=== PATIENT | female | born 1940 | race Caucasian/White ===

== ENCOUNTER 2022-01-22 08:12 | Inpatient (IN) | payer MEDICARE, SELFPAY ==
--- NOTE | ~2022-01-22 | XR_ITS ---
EXAMINATION: XR CHEST CLINICAL INFORMATION: Cough COMPARISON: None TECHNIQUE: Frontal view of the chest was obtained. FINDINGS: Lungs are mildly hypoinflated and clear. No evidence of interstitial disease, consolidation or pleural effusion. Cardiac silhouette has normal size and contour. No pulmonary edema. Multilevel osteophyte formation of the partially visualized spine. No suspicious bone lesions. XR/XR chest 1V IMPRESSION: No evidence of pneumonia. No acute cardiopulmonary findings.
--- NOTE | ~2022-01-22 | MR_ITS ---
EXAMINATION: MR BRAIN WITHOUT AND WITH CONTRAST CLINICAL INFORMATION: Right-sided weakness. COMPARISON: Head CT 01/22/2022. TECHNIQUE: Multiplanar, multisequence imaging of the brain was performed before and after the intravenous administration of 10 mL of Gadavist. FINDINGS: There is a small focus of acute lacunar infarction within the left thalamus. No large territory infarction, hemorrhage, or mass is seen. There is no abnormal intracranial enhancement. 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 There is a chronic infarct within the left BALANCER vascular territory involving the occipital lobe. Chronic lacunar infarcts are also noted in the bilateral basal ganglia and bilateral thalami. The ventricles and sulci are commensurate with mild degree of brain parenchymal volume loss demonstrated. The major arterial flow voids are preserved at the skull base. There are bilateral lens replacements. The extracranial structures are within normal limits. MR/MR head/brain wo/w con IMPRESSION: Small acute lacunar infarction in the left thalamus. Background changes of advanced chronic microangiopathy and chronic left BALANCER infarct. No mass or enhancing lesion. No hemorrhage.
--- NOTE | ~2022-01-22 | CT_ITS ---
EXAMINATION: CT CERVICAL SPINE WITHOUT CONTRAST CLINICAL INFORMATION: Right-sided weakness, pain. COMPARISON: None TECHNIQUE: Axial imaging. Sagittal and coronal reconstructions. This CT examination was performed using dose optimization techniques as appropriate, variously including the following: *Automated exposure control *Adjustment of mA and/or kV according to patient size (this includes techniques or standardized protocols for targeted exams where dose is matched to indication/reason for exam; i.e. extremities or head) *Use of iterative reconstruction technique DLP: 578 mGy-cm FINDINGS: Craniocervical and atlantoaxial articulation is maintained. The posterior alignment is maintained without evidence of significant subluxation. Predens space is maintained. There is a chronic ossification anterior to the C2 vertebral body. There is a slight angulation/depression of the superior C7 vertebral body, which could represent physiological variation versus an age-indeterminate subtle fracture. The vertebral body heights otherwise maintained. Cervical spondylosis present. Disc degenerative changes present, more prominent at C4-C5, C5-C6. Facet degeneration present. No significant prevertebral soft tissue swelling. Mild biapical pleural parenchymal scarring. No suspicious thyroid findings. No adenopathy is identified. CT/CT cervical spine wo con IMPRESSION: 1. Slight undulation/depression of the superior aspect of C7 vertebral body. This could represent physiological variation versus an age-indeterminate subtle fracture. Clinically correlate for focal symptoms. Further evaluation with MRI as clinically warranted. 2. No other acute osseous abnormalities identified in the cervical spine. 3. Cervical spondylosis.
--- NOTE | ~2022-01-22 | CT_ITS ---
EXAMINATION: CT HEAD WITHOUT CONTRAST (STROKE PROTOCOL) CLINICAL INFORMATION: Stroke protocol. Right sided weakness. COMPARISON: None TECHNIQUE: Contiguous axial imaging was performed from the skull base to vertex without intravenous administration of contrast. This CT examination was performed using dose optimization techniques as appropriate, variously including the following: *Automated exposure control *Adjustment of mA and/or kV according to patient size (this includes techniques or standardized protocols for targeted exams where dose is matched to indication/reason for exam; i.e. extremities or head) *Use of iterative reconstruction technique DLP: 727 mGy-cm FINDINGS: There is no evidence of acute intracranial hemorrhage.. There is a hypodensity in the left occipital lobe, with loss of loo-white matter differentiation compatible with an infarction, of indeterminate age. There appears to be some degree of encephalomalacia in this region.Otherwise, the Loo to white matter differentiation is well preserved, without evidence of edematous territorial infarction. No extra-axial fluid collections are identified. No abnormal mass effect or midline shift is seen Commensurate prominence of the ventricles and sulci. There is mild periventricular and subcortical white matter hypoattenuation, most likely representing microangiopathic disease. Mild patchy periventricular and deep white matter hypodensities suggestive of chronic microangiopathic ischemic changes. No acute calvarial fracture. Partial opacification of the right ethmoid sinus. The mastoid air cells and remainder of the visualized portions of the paranasal sinuses are well aerated. CT/CT head for stroke IMPRESSION: Hypodensity in the left occipital lobe compatible with an infarction, of indeterminate age. Consider further evaluation with CTA head or MRI, as clinically warranted. No evidence of acute intracranial hemorrhage. This critical result was discussed with Dr. Andersen at 919 hours on 01/22/2022. It was ascertained that the content and urgency of the report was understood at the time of direct communication.
[2022-01-22 08:21] VITALS: BP 150/50; BP 179/83; PULSE 80; PULSE 81; RESP 16; TEMP 36.6; O2SAT 98; O2SAT 99; BMI 27.8
--- NOTE | 2022-01-22 08:43 | ECG_ITS ---
Test Reason : STROKE PRO Blood Pressure : / mmHG Vent. Rate : 075 BPM Atrial Rate : 075 BPM P-R Int : 196 ms QRS Dur : 080 ms QT Int : 396 ms P-R-T Axes : 046 032 055 degrees QTc Int : 442 ms Normal sinus rhythm Septal infarct , age undetermined Abnormal ECG No previous ECGs available Referred By: Maddie Andersen Electronically Signed By:Calixto Her
[2022-01-22 09:04] LABS: MANUAL DIFF FLAG NO
[2022-01-22 09:05] LABS: Glucose, Whole Blood 114 mg/dL (60-115); Prothrombin Time Whole Bld POC 34.9 sec (11.1-13.5); ~PT, ~INR - Anti Coag Clinic 2.9 (0.9-1.1)
[2022-01-22 09:25] LABS: Basophils Absolute Auto 0.1 X10*3/uL (0.0-0.2); Basophils Percent Auto 0.7 % (0-2); Eosinophils Absolute Auto 0.2 X10*3/uL (0.0-0.4); Eosinophils Percent Auto 3.1 % (0-4); Hematocrit 33.4 % (37.0-47.0); Hemoglobin 10.9 g/dl (12.0-16.0); Imm Gran Abs Auto 0.02 X10*3/uL (0.00-0.03); Imm Gran Pct Auto 0.3 % (0.0-0.4); Lymphocytes Absolute Auto 1.9 X10*3/uL (1.2-4.9); Lymphocytes Percent Auto 25.6 % (20-40); Mean Corpuscular HGB Conc 32.6 g/dl (31.0-35.0); Mean Corpuscular Hemoglobin 28.2 pg (27.0-33.0); Mean Corpuscular Volume 86.3 fL (80.0-98.0); Mean Platelet Volume 10.4 fL (9.4-12.3); Monocytes Absolute Auto 0.6 X10*3/uL (0.1-1.2); Monocytes Percent Auto 8.3 % (2-11); Neutrophils Absolute Auto 4.6 x10*3/uL (2.0-8.3); Platelet Count 257 X10*3/uL (160-400); Red Blood Count 3.87 X10*6/uL (4.20-5.50); Red Cell Distribution Width 12.5 % (11.0-16.0); White Blood Count 7.4 X10*3/uL (4.8-10.8)
[2022-01-22 09:28] LABS: INTERNATIONAL NORM RATIO 3.1 (0.9-1.1); Prothrombin Time 36.2 SEC (9.9-13.0)
[2022-01-22 09:30] LABS: Glucose Random 118 mg/dL (60-115)
[2022-01-22 09:31] LABS: Partial Thromboplastin Time 47.9 SEC (24.1-38.0)
[2022-01-22 09:32] LABS: Stroke Lab Use COMPLETE
[2022-01-22 09:36] LABS: Alanine Aminotransferase 12 U/L (0-31); Albumin Level 3.8 g/dL (3.5-5.0); Alkaline Phosphatase 58 U/L (39-117); Anion Gap 14 (12-20); Aspartate Amino Transferase 14 U/L (5-31); Bilirubin Direct 0.2 mg/dL (0.0-0.5); Bilirubin Total 0.5 mg/dL (0.0-1.0); Blood Urea Nitrogen 21 mg/dL (9-16); Carbon Dioxide 26 mmol/L (22-29); Chloride 102 mmol/L (96-108); Creatinine Clr Calc Pharmacy 46.4; Estimated Glomerular Filt Rate 45; Glucose Random 119 mg/dL (60-115); Magnesium 1.8 mg/dL (1.6-2.6); Phosphorus 3.4 mg/dL (2.7-4.5); Potassium 4.2 mmol/L (3.3-5.1); Sodium 138 mmol/L (135-145); Total Protein 6.7 g/dL (6.5-8.0)
[2022-01-22 09:38] LABS: Troponin-I High Sensitivity < 3.5 ng/L (<3.5-17.0)
--- NOTE | 2022-01-22 09:56 | ED.NEUROSD ---
HPI - Neuro Symptoms/Deficit General Chief Complaint: Neuro Symptoms/Deficit Stated Complaint: R ARM/LEG NUMBNESS S/P BOOSTER SHOT 3 DAYS AGO Time Seen by Provider: 01/22/22 08:33 History of Present Illness HPI Narrative: Patient is in 82-year-old female with a history of CVA in the past. History of diabetes, hypertension, high cholesterol. No history of smoking. Patient had her coronavirus booster Monday. Notice numbness to the hand on . Yesterday started developing weakness to the leg. Patient's claims she is unable to ambulate. No fever no chills no coughing or congestion or upper respiratory symptoms. No diaphoresis. No changes in medication. Related Data Allergies Allergy/AdvReac Type Severity Reaction Status Date / Time aspirin [ASA] Allergy Anaphylaxis Verified 01/22/22 08:27 Review of Systems Review of Systems: Positive weakness to the right hand positive weakness to the right leg. No changes in speech. No facial droop. Yes all other systems are reviewed and are negative [facility] Past Medical History Attestation statement: The following information was validated with the patient. Medical History Diabetes High cholesterol HTN (hypertension) Social History Social History Advance Directives: No Advance Directives Information Provided: No Physical Exam Vital Signs: Vital Signs: Last Vital Signs Temp 97.9 F 01/22/22 08:21 Pulse 85 01/22/22 10:18 Resp 18 01/22/22 10:18 BP 171/61 H 01/22/22 10:18 Pulse Ox 98 01/22/22 10:18 BMI result Body Mass Index 27.8 Appearance: Alert. Oriented X3. No acute distress. Eyes: Pupils equal, round and reactive to light. ENT: Pharynx normal. Neck: Normal inspection. Neck supple. No lymph nodes noted. No crepitus CVS: Normal heart rate and rhythm. Pulses normal. Normal S1 and S2 Respiratory: No respiratory distress. Breath sounds normal. No Wheezing. No rales Abdomen: Soft and nontender. No rigidity. No distention. good BS x4 Skin: Skin warm and dry. Normal skin color. Normal skin turgor. Extremities: Positive weakness to the right lower extremity. Unable lift up against gravity. Sensation bilateral lower extremity intact. Hand grasps equal bilaterally. Sensation hands intact. Minimal drift noted on the right hand. Neuro: Oriented X 3. Positive weakness in the right lower extremity. Unable lift up against gravity. Sensation in lower extremity intact. Pulse intact. No slurred speech no facial droop. Please also see NIH stroke scale. MDM - Neuro Symptoms/Deficit MDM Narrative Medical decision making narrative: Positive weakness to the hand followed by day later weakness in the leg. Symptoms greater than 24 hours at this point. Patient CT scan of the head was grossly negative. Patient is on warfarin not a candidate for tPA. Patient not a candidate for interventional clot retrieval due to the chronicity of the illness. Question complicated migraine. Patient's case discussed with neurology. Patient's neurological symptoms unchanged. Agree with plan of giving some Reglan. [place] it is not a stroke given the CT scan of the head showed an occipital lesion likely not the cause of patient's leg weakness. Will admit patient to the hospitalist service for further evaluation as patient is unable to ambulate. She is in stable condition her electrolytes are normal her sugar did not show any evidence Medical Records Attestation: I reviewed the patient's medical records. Lab Data Result diagrams: 01/22/22 09:00 01/22/22 09:00 Labs: Lab Results 01/22/22 01/22/22 01/22/22 Range/Units 09:00 09:00 09:00 WBC 7.4 (4.8-10.8) X10*3/uL RBC 3.87 L (4.20-5.50) X10*6/uL Hgb 10.9 L (12.0-16.0) g/dl Hct 33.4 L (37.0-47.0) % MCV 86.3 (80.0-98.0) fL MCH 28.2 (27.0-33.0) pg MCHC 32.6 (31.0-35.0) g/dl RDW 12.5 (11.0-16.0) % Plt Count 257 (160-400) X10*3/uL MPV 10.4 (9.4-12.3) fL Immature Gran % (Auto) 0.3 (0.0-0.4) % Neut % (Auto) 62.0 (45-73) % Lymph % (Auto) 25.6 (20-40) % Gregory % (Auto) 8.3 (2-11) % Eos % (Auto) 3.1 (0-4) % Baso % (Auto) 0.7 (0-2) % Lymph # (Auto) 1.9 (1.2-4.9) X10*3/uL Gregory # (Auto) 0.6 (0.1-1.2) X10*3/uL Eos # (Auto) 0.2 (0.0-0.4) X10*3/uL Baso # (Auto) 0.1 (0.0-0.2) X10*3/uL Abs Immat Gran (auto) 0.02 (0.00-0.03) X10*3/uL Absolute Neuts (auto) 4.6 (2.0-8.3) x10*3/uL Absolute Nucleated RBC 0.000 (0.0-0.012) X10*3/uL Nucleated RBC % (auto) 0.0 (0.0-0.2) /100WBC PT 36.2 H (9.9-13.0) SEC Whole Blood PT (11.1-13.5) sec INR 3.1 H (0.9-1.1) Whole Blood INR (0.9-1.1) APTT 47.9 H (24.1-38.0) SEC Sodium 138 (135-145) mmol/L Potassium 4.2 (3.3-5.1) mmol/L Chloride 102 (96-108) mmol/L Carbon Dioxide 26 (22-29) mmol/L Anion Gap 14 (12-20) BUN 21 H (9-16) mg/dL Creatinine 1.16 (0.5-1.4) mg/dL Estim Creat Clear Calc 46.4 Estimated GFR 45 POC Glucose (60-115) mg/dL Random Glucose 119 H (60-115) mg/dL Calcium 9.0 (8.4-10.2) mg/dL Phosphorus 3.4 (2.7-4.5) mg/dL Magnesium 1.8 (1.6-2.6) mg/dL Total Bilirubin 0.5 (0.0-1.0) mg/dL Direct Bilirubin 0.2 (0.0-0.5) mg/dL AST 14 (5-31) U/L ALT 12 (0-31) U/L Alkaline Phosphatase 58 (39-117) U/L Total Creatine Kinase 56 (26-140) U/L Troponin I High Sens (<3.5-17.0) ng/L Total Protein 6.7 (6.5-8.0) g/dL Albumin 3.8 (3.5-5.0) g/dL 01/22/22 01/22/22 01/22/22 Range/Units 09:00 09:00 09:00 WBC (4.8-10.8) X10*3/uL RBC (4.20-5.50) X10*6/uL Hgb (12.0-16.0) g/dl Hct (37.0-47.0) % MCV (80.0-98.0) fL MCH (27.0-33.0) pg MCHC (31.0-35.0) g/dl RDW (11.0-16.0) % Plt Count (160-400) X10*3/uL MPV (9.4-12.3) fL Immature Gran % (Auto) (0.0-0.4) % Neut % (Auto) (45-73) % Lymph % (Auto) (20-40) % Gregory % (Auto) (2-11) % Eos % (Auto) (0-4) % Baso % (Auto) (0-2) % Lymph # (Auto) (1.2-4.9) X10*3/uL Gregory # (Auto) (0.1-1.2) X10*3/uL Eos # (Auto) (0.0-0.4) X10*3/uL Baso # (Auto) (0.0-0.2) X10*3/uL Abs Immat Gran (auto) (0.00-0.03) X10*3/uL Absolute Neuts (auto) (2.0-8.3) x10*3/uL Absolute Nucleated RBC (0.0-0.012) X10*3/uL Nucleated RBC % (auto) (0.0-0.2) /100WBC PT (9.9-13.0) SEC Whole Blood PT (11.1-13.5) sec INR (0.9-1.1) Whole Blood INR (0.9-1.1) APTT (24.1-38.0) SEC Sodium (135-145) mmol/L Potassium (3.3-5.1) mmol/L Chloride (96-108) mmol/L Carbon Dioxide (22-29) mmol/L Anion Gap (12-20) BUN (9-16) mg/dL Creatinine (0.5-1.4) mg/dL Estim Creat Clear Calc Estimated GFR POC Glucose 114 (60-115) mg/dL Random Glucose 118 H (60-115) mg/dL Calcium (8.4-10.2) mg/dL Phosphorus (2.7-4.5) mg/dL Magnesium (1.6-2.6) mg/dL Total Bilirubin (0.0-1.0) mg/dL Direct Bilirubin (0.0-0.5) mg/dL AST (5-31) U/L ALT (0-31) U/L Alkaline Phosphatase (39-117) U/L Total Creatine Kinase (26-140) U/L Troponin I High Sens < 3.5 (<3.5-17.0) ng/L Total Protein (6.5-8.0) g/dL Albumin (3.5-5.0) g/dL 01/22/22 Range/Units 09:00 WBC (4.8-10.8) X10*3/uL RBC (4.20-5.50) X10*6/uL Hgb (12.0-16.0) g/dl Hct (37.0-47.0) % MCV (80.0-98.0) fL MCH (27.0-33.0) pg MCHC (31.0-35.0) g/dl RDW (11.0-16.0) % Plt Count (160-400) X10*3/uL MPV (9.4-12.3) fL Immature Gran % (Auto) (0.0-0.4) % Neut % (Auto) (45-73) % Lymph % (Auto) (20-40) % Gregory % (Auto) (2-11) % Eos % (Auto) (0-4) % Baso % (Auto) (0-2) % Lymph # (Auto) (1.2-4.9) X10*3/uL Gregory # (Auto) (0.1-1.2) X10*3/uL Eos # (Auto) (0.0-0.4) X10*3/uL Baso # (Auto) (0.0-0.2) X10*3/uL Abs Immat Gran (auto) (0.00-0.03) X10*3/uL Absolute Neuts (auto) (2.0-8.3) x10*3/uL Absolute Nucleated RBC (0.0-0.012) X10*3/uL Nucleated RBC % (auto) (0.0-0.2) /100WBC PT (9.9-13.0) SEC Whole Blood PT 34.9 H (11.1-13.5) sec INR (0.9-1.1) Whole Blood INR 2.9 H (0.9-1.1) APTT (24.1-38.0) SEC Sodium (135-145) mmol/L Potassium (3.3-5.1) mmol/L Chloride (96-108) mmol/L Carbon Dioxide (22-29) mmol/L Anion Gap (12-20) BUN (9-16) mg/dL Creatinine (0.5-1.4) mg/dL Estim Creat Clear Calc Estimated GFR POC Glucose (60-115) mg/dL Random Glucose (60-115) mg/dL Calcium (8.4-10.2) mg/dL Phosphorus (2.7-4.5) mg/dL Magnesium (1.6-2.6) mg/dL Total Bilirubin (0.0-1.0) mg/dL Direct Bilirubin (0.0-0.5) mg/dL AST (5-31) U/L ALT (0-31) U/L Alkaline Phosphatase (39-117) U/L Total Creatine Kinase (26-140) U/L Troponin I High Sens (<3.5-17.0) ng/L Total Protein (6.5-8.0) g/dL Albumin (3.5-5.0) g/dL NIH Stroke Scale Internal: Initial- Upon Arrival Level of Consciousness: Alert Level of Consciousness Questions: Answers both questions correctly Level of Consciousness Commands: Performs both tasks correctly Best Gaze: Normal Visual: No visual loss Facial Palsy: Normal Motor Arm (Right): No drift Motor Arm (Left): No drift Motor Leg (Right): Some effort against gravity Motor Leg (Left): No drift Limb Ataxia: Present in one limb Sensory: Normal Best Language: No aphasia Dysarthia: Normal Extinction and Inattention: No abnormality Score: 3 Discharge Plan Discharge Clinical Impression: Cerebrovascular accident Patient Disposition: Admitted As Inpatient
[2022-01-22 10:18] VITALS: BP 171/61; PULSE 85; RESP 18; O2SAT 98
--- NOTE | 2022-01-22 10:27 | PC.NURSE ---
spoke with daughter who reports hx December 2020 stroke following 2nd vaccine home [phone] cell [phone]
--- NOTE | 2022-01-22 11:03 | PC.NURSE ---
plan for pt to be admit to the hospital. pt and daughter aware of plan
[2022-01-22] MEDS: diphenhydrAMINE HCL 50 MG/ML VIAL 25 MG IVPUSH (11:58)
[2022-01-22] MEDS: Metoclopramide HCl 10 MG/2 ML VIAL IVPUSH (11:58)
--- NOTE | 2022-01-22 12:18 | PHA.MEDREC ---
Pharmacy Consult ? Medication Reconciliation Pharmacy has completed the medication reconciliation. Patient's warfarin changes weekly pending INR. Current regimen entered. Thanks Julius
[2022-01-22 12:21] LABS: COVID-19 Test Negative (Negative); IDNOW Serial# 55D5AD1C
[2022-01-22 12:31] VITALS: BP 153/87; PULSE 77; RESP 16; TEMP 36.7; O2SAT 98
--- NOTE | 2022-01-22 12:57 | P.HPHOSP_ITS ---
History of Present Illness Date of Service: 01/22/22 Chief Complaint: Right-sided weakness 82-year-old female with history of diabetes hypertension high cholesterol and old CVA presents today with weakness to her right leg. She states she received veloz booster approximately 3 days ago and developed numbness and tingling in her right arm the next day. She states no initial leg symptoms. States when she woke up this morning she was unable to keep her knee straight and felt getting out of bed. Presented to the emergency room where CT revealed an old occipital infarct but nothing acute. She will be admitted to complete workup Review of Systems Review of Systems: Denies chest pain Denies shortness of breath Denies nausea vomiting diarrhea Denies fever chills [facility] Medical History (Updated 01/22/22 @ 13:09 by Roderick Mayfield DO) Diabetes High cholesterol HTN (hypertension) Social History Advance Directives: No Advance Directives Information Provided: No Meds Allergies Allergy/AdvReac Type Severity Reaction Status Date / Time aspirin [ASA] Allergy Anaphylaxis Verified 01/22/22 08:27 Active Medications: Current Medications Insulin Human Lispro (Insulin Lispro 100 Unit/Ml 3 Ml Vial) 0 unit SUBCUT QIDACHS [facility]; Protocol Levothyroxine Sodium (Levothyroxine Sodium 50 Mcg Tablet) 50 mcg PO DAILY@0600 [facility] Losartan Potassium (Losartan Potassium 25 Mg Tablet) 25 mg PO DAILY [facility]; Protocol Metformin HCl (Metformin Hcl 500 Mg Tablet) 500 mg PO BID [facility] Multivitamins/Vitamin C (Multivitamin Tablet) 1 tab PO DAILY [facility] Sodium Chloride (0.9 % Sodium Chloride Flush 3 Ml Syringe) 3 ml IVFLUSH QSHIFT [facility] Vitamin D (Cholecalciferol (Vitamin D3) 25 Mcg Tablet) 50 mcg PO DAILY [facility] Warfarin Sodium (Warfarin Sodium 2.5 Mg Tablet) 2.5 mg PO SUWE [facility] Warfarin Sodium (Warfarin Sodium 5 Mg Tablet) 5 mg PO MOTUTHFRSA [facility] Home Medications Medication Instructions Recorded Confirmed Last Taken Type cholecalciferol (vitamin D3) 50 50 mcg PO DAILY 01/22/22 01/22/22 01/22/22 History mcg (2,000 unit) tablet hydroxyzine HCl 10 mg tablet 1 - 2 tab PO DAILY PRN 01/22/22 01/22/22 01/21/22 History levothyroxine 50 mcg tablet 1 tab PO DAILY 01/22/22 01/22/22 01/22/22 History losartan 25 mg tablet 1 tab PO DAILY 01/22/22 01/22/22 01/22/22 History metformin 500 mg tablet 1 tab PO BID 01/22/22 01/22/22 01/22/22 History multivitamin 1 tab PO DAILY 01/22/22 01/22/22 01/22/22 History warfarin 2.5 mg tablet 2.5 mg PO SUWE 01/22/22 01/22/22 01/19/22 History warfarin 5 mg tablet 5 mg PO MOTUTHFRSA 01/22/22 01/22/22 01/21/22 History Physical Exam Vital Signs and Narrative: Vital Signs: Last Vital Signs Temp 98.0 F 01/22/22 12:31 Pulse 77 01/22/22 12:31 Resp 16 01/22/22 12:31 BP 153/87 H 01/22/22 12:31 Pulse Ox 98 01/22/22 12:31 BMI result Body Mass Index 27.8 Const: Other: Awake alert oriented x3 no acute distress Neck: Other: No JVD Resp: Other: Clear to auscultation bilaterally. No rales rhonchi or wheezes Cardio: Other: No S4; positive S1-S2; no S3 murmurs rubs or gallops GI: Other: Soft nontender nondistended with normoactive bowel sounds Neuro: Other: Cranial nerves 2-12 grossly intact as tested. Motor is 5/5 left lower extremity 3/5 right lower extremity. Motor is 4/5 right upper extremity 5/5 left upper extremity. Right pronator drift. Toes downgoing. Cognition appropriate Extrem: Other: No edema bilaterally Results Labs CBC and Chem 7: 01/22/22 09:00 01/22/22 09:00 Labs: Laboratory Results - last 24 hr 01/22/22 01/22/22 01/22/22 09:00 09:00 09:00 MCV 86.3 MCH 28.2 MCHC 32.6 RDW 12.5 Plt Count 257 MPV 10.4 Immature Gran % (Auto) 0.3 Neut % (Auto) 62.0 Lymph % (Auto) 25.6 [place] % (Auto) 8.3 Eos % (Auto) 3.1 Baso % (Auto) 0.7 Lymph # (Auto) 1.9 [place] # (Auto) 0.6 Eos # (Auto) 0.2 Baso # (Auto) 0.1 Abs Immat Gran (auto) 0.02 Absolute Neuts (auto) 4.6 Absolute Nucleated RBC 0.000 Nucleated RBC % (auto) 0.0 PT 36.2 H Whole Blood PT INR 3.1 H Whole Blood INR APTT 47.9 H Anion Gap 14 Estim Creat Clear Calc 46.4 Estimated GFR 45 POC Glucose Random Glucose 119 H Calcium 9.0 Phosphorus 3.4 Magnesium 1.8 Total Bilirubin 0.5 Direct Bilirubin 0.2 AST 14 ALT 12 Alkaline Phosphatase 58 Total Creatine Kinase 56 Troponin I High Sens Total Protein 6.7 Albumin 3.8 COVID-19 (EDYTA) COVID-19 Venuemob 01/22/22 01/22/22 01/22/22 09:00 09:00 09:00 MCV MCH MCHC RDW Plt Count MPV Immature Gran % (Auto) Neut % (Auto) Lymph % (Auto) [place] % (Auto) Eos % (Auto) Baso % (Auto) Lymph # (Auto) [place] # (Auto) Eos # (Auto) Baso # (Auto) Abs Immat Gran (auto) Absolute Neuts (auto) Absolute Nucleated RBC Nucleated RBC % (auto) PT Whole Blood PT INR Whole Blood INR APTT Anion Gap Estim Creat Clear Calc Estimated GFR POC Glucose 114 Random Glucose 118 H Calcium Phosphorus Magnesium Total Bilirubin Direct Bilirubin AST ALT Alkaline Phosphatase Total Creatine Kinase Troponin I High Sens < 3.5 Total Protein Albumin COVID-19 (EDYTA) COVID-19 Venuemob 01/22/22 01/22/22 09:00 11:20 MCV MCH MCHC RDW Plt Count MPV Immature Gran % (Auto) Neut % (Auto) Lymph % (Auto) [place] % (Auto) Eos % (Auto) Baso % (Auto) Lymph # (Auto) [place] # (Auto) Eos # (Auto) Baso # (Auto) Abs Immat Gran (auto) Absolute Neuts (auto) Absolute Nucleated RBC Nucleated RBC % (auto) PT Whole Blood PT 34.9 H INR Whole Blood INR 2.9 H APTT Anion Gap Estim Creat Clear Calc Estimated GFR POC Glucose Random Glucose Calcium Phosphorus Magnesium Total Bilirubin Direct Bilirubin AST ALT Alkaline Phosphatase Total Creatine Kinase Troponin I High Sens Total Protein Albumin COVID-19 (EDYTA) Negative COVID-19 Clin Com See Note Imaging Radiologist's Impressions: Impressions Chest X-Ray 01/22/22 09:02 IMPRESSION: No evidence of pneumonia. No acute cardiopulmonary findings. Head CT 01/22/22 09:12 IMPRESSION: Hypodensity in the left occipital lobe compatible with an infarction, of indeterminate age. Consider further evaluation with CTA head or MRI, as clinically warranted. No evidence of acute intracranial hemorrhage. This critical result was discussed with Dr. Andersen at 919 hours on 01/22/2022. It was ascertained that the content and urgency of the report was understood at the time of direct communication. Cervical Spine CT 01/22/22 09:23 IMPRESSION: 1. Slight undulation/depression of the superior aspect of C7 vertebral body. This could represent physiological variation versus an age-indeterminate subtle fracture. Clinically correlate for focal symptoms. Further evaluation with MRI as clinically warranted. 2. No other acute osseous abnormalities identified in the cervical spine. 3. Cervical spondylosis. Assessment and Plan (1) Right sided weakness: Status: Acute (2) Diabetes: Status: Acute (3) HTN (hypertension): Status: Acute (4) High cholesterol: Status: Acute Plan 82-year-old female with a history of CVA in the past in the backdrop of diabetes hypertension hyperlipidemia presents with right-sided weakness that she awoke with. States that she got a COVID booster approximately 72 hours ago and developed some paresthesias in her upper arm. She stated no leg pain or p aresthesia at that time. In the emergency room CT scan was positive for an old infarct nothing acute. 1. Right-sided paresthesias -admit to telemetry to rule out arrhythmia -2D echo/MRI brain/carotids -continue Coumadin -Neuro consult; advise on timing of 2D echo/MRI/carotids 2. Diabetes type 2 -continue metformin at outpatient dosing... Adjust as clinically indicated -lispro correctional scale -ADA diet 3. Hypertension -acceptable control on current therapies -adjust as clinically indicated 4. Hyperlipidemia -check lipid panel in a.m.. .. Currently not on statin Full code Coumadin Will require 2 midnights going forward to rule out arrhythmia incomplete workup. This cannot be done and a less acute setting Quality Stroke Does the patient have a stroke diagnosis?: No VTE Prior VTE?: No VTE Risk Level:: Medical - moderate - high VTE Device Contraindication: Treatment Not Indicated VTE Drug Contraindication: N/A - Med Ordered
--- NOTE | 2022-01-22 14:15 | P.CNNE_ITS ---
History of Present Illness Data of Consult Service Date: 01/22/22 Primary Care Provider: Eli Morrison MD [facility] Reason for consult: Right-sided numbness and weakness 82 years old woman with hypertension and previous stroke taking Coumadin came to hospital with new onset of right-sided numbness and weakness. He said that day or 2 before that he had COVID booster in right shoulder. Her arm was aching and then next day she woke up and noted numbness in her hand and arm. Numbness was more loss of dexterity and difficult to explain feeling. Next a she tried to get and her right knee and leg gave away. She decided to come to hospital. There was no complaint of headache or neck pain. Review of Systems Review of Systems: No recent cold or flu-like illness PMFSH Past Medical History Medical History (Updated 01/22/22 @ 13:09 by Roderick Mayfield DO) Diabetes High cholesterol HTN (hypertension) Social History Social History Advance Directives: No Advance Directives Information Provided: No Meds Allergies Allergy/AdvReac Type Severity Reaction Status Date / Time aspirin [ASA] Allergy Anaphylaxis Verified 01/22/22 08:27 Active Medications: Current Medications Insulin Human Lispro (Insulin Lispro 100 Unit/Ml 3 Ml Vial) 0 unit SUBCUT QIDACHS [facility]; Protocol Levothyroxine Sodium (Levothyroxine Sodium 50 Mcg Tablet) 50 mcg PO DAILY@0600 [facility] Losartan Potassium (Losartan Potassium 25 Mg Tablet) 25 mg PO DAILY [facility]; Protocol Metformin HCl (Metformin Hcl 500 Mg Tablet) 500 mg PO BIDWM [facility] Multivitamins/Vitamin C (Multivitamin Tablet) 1 tab PO DAILY [facility] Sodium Chloride (0.9 % Sodium Chloride Flush 3 Ml Syringe) 3 ml IVFLUSH QSHIFT [facility] Vitamin D (Cholecalciferol (Vitamin D3) 25 Mcg Tablet) 50 mcg PO DAILY [facility] Warfarin Sodium (Warfarin Sodium 2.5 Mg Tablet) 2.5 mg PO [id number] [facility] Warfarin Sodium (Warfarin Sodium 5 Mg Tablet) 5 mg PO [id number]@[email or web address] [facility] Home Medications Medication Instructions Recorded Confirmed Last Taken Type cholecalciferol (vitamin D3) 50 50 mcg PO DAILY 01/22/22 01/22/22 01/22/22 History mcg (2,000 unit) tablet hydroxyzine HCl 10 mg tablet 1 - 2 tab PO DAILY PRN 01/22/22 01/22/22 01/21/22 History levothyroxine 50 mcg tablet 1 tab PO DAILY 01/22/22 01/22/22 01/22/22 History losartan 25 mg tablet 1 tab PO DAILY 01/22/22 01/22/22 01/22/22 History metformin 500 mg tablet 1 tab PO BID 01/22/22 01/22/22 01/22/22 History multivitamin 1 tab PO DAILY 01/22/22 01/22/22 01/22/22 History warfarin 2.5 mg tablet 2.5 mg PO SUWE 01/22/22 01/22/22 01/19/22 History warfarin 5 mg tablet 5 mg PO MOTUTHFRSA 01/22/22 01/22/22 01/21/22 History Physical Exam Vital Signs: Vital Signs: Last Vital Signs Temp 98.0 F 01/22/22 12:31 Pulse 77 01/22/22 12:31 Resp 16 01/22/22 12:31 BP 153/87 H 01/22/22 12:31 Pulse Ox 98 01/22/22 12:31 BMI result Body Mass Index 27.8 Neuro: Other: She was alert and awake with normal spontaneity of speech fluency comprehension and affect. Pupils were 3 mm round reactive to light. Extraocular muscles were intact. Visual vazquez are full to threat. Face was symmetrical. There was mild right pronator drift. Fine finger movements were slow in right hand. Right plantar was probably extensor left flexor. Deep tendon reflexes were trace. There was no sensory or visual extinction. Results Labs CBC & Chem 7: 01/22/22 09:00 01/22/22 09:00 Labs: Short CBC 01/22/22 Range/Units 09:00 WBC 7.4 (4.8-10.8) X10*3/uL Hgb 10.9 L (12.0-16.0) g/dl Hct 33.4 L (37.0-47.0) % Plt Count 257 (160-400) X10*3/uL BMP 01/22/22 09:00 Sodium 138 Potassium 4.2 Chloride 102 Carbon Dioxide 26 BUN 21 H Creatinine 1.16 Calcium 9.0 Cardiac Enzymes 01/22/22 Range/Units 09:00 Total Creatine Kinase 56 (26-140) U/L Liver Function 01/22/22 Range/Units 09:00 Total Bilirubin 0.5 (0.0-1.0) mg/dL Direct Bilirubin 0.2 (0.0-0.5) mg/dL AST 14 (5-31) U/L ALT 12 (0-31) U/L Alkaline Phosphatase 58 (39-117) U/L Albumin 3.8 (3.5-5.0) g/dL Noncontrast head CT revealed multiple bilateral hypodense signal abnormalities especially in left occipital area. These abnormalities could be chronic ischemic infarction or could be demyelinating disease. Assessment and Plan (1) Right sided weakness: Status: Acute 82 years old woman with right sided numbness and weakness suggestive of a central lesion. Stroke or an inflammatory or demyelinating etiology are consideration. For now I recommend blood pressure control, continuing her baseline medicines and obtaining an MRI of brain with and without contrast to evaluate pathology. Procedures Date of Service Date of Service: 01/22/22
[2022-01-22 16:00] VITALS: BP 164/75; PULSE 76; RESP 17; TEMP 36.4; O2SAT 95
[2022-01-22 16:31] LABS: Glucose, Whole Blood 150 mg/dL (60-115)
[2022-01-22] MEDS: metFORMIN HCl 500 MG TABLET PO (17:33)
[2022-01-22] MEDS: 0.9 % Sodium Chloride Flush 3 ML SYRINGE IVFLUSH ×2 (17:34→23:37)
[2022-01-22 20:00] VITALS: BP 186/81; PULSE 74; RESP 16; TEMP 37.1; O2SAT 97
[2022-01-22 21:01] LABS: Glucose, Whole Blood 101 mg/dL (60-115)
[2022-01-22] MEDS: hydrALAZINE HCl 20 MG/ML VIAL 5 MG IVPUSH (22:11)
[2022-01-23] VITALS (7 sets, daily range): BP systolic 146–173; BP diastolic 64–92; PULSE 66–82; RESP 16–20; TEMP 36.1–36.8; O2SAT 95–98
[2022-01-23] MEDS: Levothyroxine Sodium 50 MCG TABLET PO (05:34)
[2022-01-23 06:51] LABS: INTERNATIONAL NORM RATIO 4.2 (0.9-1.1); Prothrombin Time 49.3 SEC (9.9-13.0)
[2022-01-23 07:03] LABS: Hematocrit 33.8 % (37.0-47.0); Hemoglobin 11.3 g/dl (12.0-16.0); Mean Corpuscular HGB Conc 33.4 g/dl (31.0-35.0); Mean Corpuscular Hemoglobin 28.6 pg (27.0-33.0); Mean Corpuscular Volume 85.6 fL (80.0-98.0); Mean Platelet Volume 10.5 fL (9.4-12.3); Platelet Count 266 X10*3/uL (160-400); Red Blood Count 3.95 X10*6/uL (4.20-5.50); Red Cell Distribution Width 12.3 % (11.0-16.0); White Blood Count 6.9 X10*3/uL (4.8-10.8)
[2022-01-23 07:10] LABS: Alanine Aminotransferase 9 U/L (0-31); Albumin Level 3.7 g/dL (3.5-5.0); Alkaline Phosphatase 52 U/L (39-117); Anion Gap 15 (12-20); Aspartate Amino Transferase 14 U/L (5-31); Bilirubin Total 0.6 mg/dL (0.0-1.0); Blood Urea Nitrogen 17 mg/dL (9-16); Calcium 9.3 mg/dL (8.4-10.2); Carbon Dioxide 24 mmol/L (22-29); Chloride 104 mmol/L (96-108); Creatinine Clr Calc Pharmacy 49.5; Estimated Glomerular Filt Rate 48; Glucose Fasting 125 mg/dL (60-99); Potassium 4.6 mmol/L (3.3-5.1); Sodium 138 mmol/L (135-145); Total Protein 6.4 g/dL (6.5-8.0)
[2022-01-23 07:27] LABS: Glucose, Whole Blood 128 mg/dL (60-115)
[2022-01-23] MEDS: Cholecalciferol (Vitamin D3) 25 MCG TABLET 50 MCG PO (09:05)
[2022-01-23] MEDS: Multivitamin TABLET 1 TAB PO (09:05)
[2022-01-23] MEDS: metFORMIN HCl 500 MG TABLET PO ×2 (09:05→16:45)
[2022-01-23] MEDS: Losartan Potassium 25 MG TABLET PO (09:05)
[2022-01-23] MEDS: 0.9 % Sodium Chloride Flush 3 ML SYRINGE IVFLUSH ×3 (09:06→20:14)
[2022-01-23 11:38] LABS: Glucose, Whole Blood 121 mg/dL (60-115)
--- NOTE | 2022-01-23 12:15 | MHC.CM.PN ---
Addendum entered by Melissa Vasques RN 01/23/22 12:28: PT AND DTR PREFER STR IN [facility] EVEN W/POSSIBILITY OF ACUTE REHAB, NO SPECIFIC FACILITIES PREFERRED AT THIS TIME. Original Note: IMM 01/23/22, EMR REVIEWED, PT ADMITTED W/ACUTE R SIDED WEAKNESS AND HX OF STROKE, PLAN FOR MRI W/AND W/OUT CONTRAST, CM MET W/PT AND DTR KARLEE WHO WAS AT BEDSIDE, KARLEE IS A HOME CARE NURSE AND IS VERY VOCAL AT BEDSIDE AND ADVOCATING FOR STR/AR FOR PT, PT AND DTR BOTH REPORT PT FULLY INDEP AT BASELINE W/NO DME OR HOME SERVICES AND DRIVING, DTR ADAMANT PT'S R SIDED WEAKNESS FROM COVID BOOSTER PT RECEIVED APPROX TWO DAYS AGO, PT RECEIVED BOOSTER AT [facility] AND DOES NOT HAVE CARD OR RECALL WHICH BOOSTER, PT VERIFIES PCP IS MELISSA TAPIA, [facility]MADIN [facility]IN[facility] AT [facility] IN [place], PT REPORTS HER DTR IS HER HCP HOWEVER THEY DO NOT HAVE A COPY AND CM WILL RETURN IN AM TO COMPLETE W/PT. PT WILL NEED PT EVAL FOR DISPO D/C PLAN: ANTIC STR/ACUTE REHAB W/ACTION FOR BLS TRANSPORT
--- NOTE | 2022-01-23 13:14 | HO.PM.IMPN ---
Subjective Subjective Date of Service: 01/23/22 Interval History: No acute issues overnight. Symptoms essentially unchanged from presentation Review of Systems Denies chest pain Denies shortness of breath Denies nausea vomiting diarrhea Denies fever chills Physical Exam Vital Signs: Vital Signs: Last Vital Signs Temp 97.5 F 01/23/22 11:32 Pulse 66 01/23/22 11:32 Resp 20 01/23/22 11:32 BP 166/64 H 01/23/22 11:32 Pulse Ox 98 01/23/22 11:32 BMI result Body Mass Index 27.8 Const: Other: Awake alert oriented x3 no acute distress Neck: Other: No JVD Resp: Other: Clear to auscultation bilaterally. No rales rhonchi or wheezes Cardio: Other: No S4; positive S1-S2; no S3 murmurs rubs or gallops GI: Other: Soft nontender nondistended with normoactive bowel sounds Neuro: Other: Cranial nerves 2-12 grossly intact as tested. Motor is 5/5 left lower extremity 3/5 right lower extremity. Motor is 4/5 right upper extremity 5/5 left upper extremity. Right pronator drift. Toes downgoing. Cognition appropriate Extrem: Other: No edema bilaterally Objective Data Active Medications Insulin Human Lispro (Insulin Lispro 100 Unit/Ml 3 Ml Vial) 0 unit SUBCUT QIDACHS [facility]; Protocol Last Admin: 01/23/22 11:39 Dose: Not Given Documented by: COTEMA Non-Admin Reason: No Insulin Coverage Levothyroxine Sodium (Levothyroxine Sodium 50 Mcg Tablet) 50 mcg PO DAILY@0600 [facility] Last Admin: 01/23/22 05:34 Dose: 50 mcg Documented by: CASTILM Losartan Potassium (Losartan Potassium 25 Mg Tablet) 25 mg PO DAILY [facility]; Protocol Last Admin: 01/23/22 09:05 Dose: 25 mg Documented by: COTEMA Metformin HCl (Metformin Hcl 500 Mg Tablet) 500 mg PO BIDWM [facility] Last Admin: 01/23/22 09:05 Dose: 500 mg Documented by: COTEMA Multivitamins/Vitamin C (Multivitamin Tablet) 1 tab PO DAILY [facility] Last Admin: 01/23/22 09:05 Dose: 1 tab Documented by: COTEMA Sodium Chloride (0.9 % Sodium Chloride Flush 3 Ml Syringe) 3 ml IVFLUSH QSHIFT [facility] Last Admin: 01/23/22 09:06 Dose: 3 ml Documented by: YOLI Vitamin D (Cholecalciferol (Vitamin D3) 25 Mcg Tablet) 50 mcg PO DAILY [facility] Last Admin: 01/23/22 09:05 Dose: 50 mcg Documented by: YOLI Warfarin Sodium (Warfarin Sodium 2.5 Mg Tablet) 2.5 mg PO SuWe@1800 [facility] Warfarin Sodium (Warfarin Sodium 5 Mg Tablet) 5 mg PO MoTuThFrSa@1800 [facility] Labs CBC & Chem 7: 01/23/22 05:52 01/23/22 05:52 Labs: Laboratory Results - last 24 hr 01/22/22 01/22/22 01/23/22 15:09 20:48 05:52 MCV MCH MCHC RDW Plt Count MPV Absolute Nucleated RBC Nucleated RBC % (auto) PT INR Anion Gap 15 Estim Creat Clear Calc 49.5 Estimated GFR 48 POC Glucose 150 H 101 Fasting Glucose 125 H Calcium 9.3 Total Bilirubin 0.6 AST 14 ALT 9 Alkaline Phosphatase 52 Total Protein 6.4 L Albumin 3.7 01/23/22 01/23/22 01/23/22 05:52 05:52 07:23 MCV 85.6 MCH 28.6 MCHC 33.4 RDW 12.3 Plt Count 266 MPV 10.5 Absolute Nucleated RBC 0.000 Nucleated RBC % (auto) 0.0 PT 49.3 H INR 4.2 H Anion Gap Estim Creat Clear Calc Estimated GFR POC Glucose 128 H Fasting Glucose Calcium Total Bilirubin AST ALT Alkaline Phosphatase Total Protein Albumin 01/23/22 11:34 MCV MCH MCHC RDW Plt Count MPV Absolute Nucleated RBC Nucleated RBC % (auto) PT INR Anion Gap Estim Creat Clear Calc Estimated GFR POC Glucose 121 H Fasting Glucose Calcium Total Bilirubin AST ALT Alkaline Phosphatase Total Protein Albumin Assessment and Plan (1) Right sided weakness: Status: Acute (2) Diabetes: Status: Acute (3) High cholesterol: Status: Acute (4) HTN (hypertension): Status: Acute Plan 82-year-old female with a history of CVA in the past in the backdrop of diabetes hypertension hyperlipidemia presents with right-sided weakness that she awoke with. States that she got a COVID booster approximately 72 hours ago and developed some paresthesias in her upper arm. She stated no leg pain or paresthesia at that time. In the emergency room CT scan was positive for an old infarct nothing acute. 1. Right-sided paresthesias -admit to telemetry to rule out arrhythmia -will book MRI of brain with and without contrast as per Neurology recommendation -add high-dose statin 2. Diabetes type 2 -continue metformin at outpatient dosing... Adjust as clinically indicated -lispro correctional scale -ADA diet 3. Hypertension -increase losartan -adjust as clinically indicated 4. Hyperlipidemia -check lipid panel in a.m.. .. Currently not on statin Full code Coumadin Will require 2 midnights going forward to rule out arrhythmia incomplete workup. This cannot be done and a less acute setting Quality Stroke Does the patient have a stroke diagnosis?: No VTE Prior VTE?: No VTE Risk Level:: Medical - moderate - high VTE Device Contraindication: Treatment Not Indicated VTE Drug Contraindication: N/A - Med Ordered
[2022-01-23 16:34] LABS: Glucose, Whole Blood 169 mg/dL (60-115)
[2022-01-23] MEDS: Insulin Lispro 100 UNIT/ML 3 ML VIAL SUBCUT (16:45)
[2022-01-23] MEDS: Warfarin Sodium 2.5 MG TABLET PO (16:45)
[2022-01-23 21:29] LABS: Glucose, Whole Blood 97 mg/dL (60-115)
[2022-01-24 03:07] VITALS: BP 147/82; PULSE 72; RESP 15; TEMP 36.2; O2SAT 96
[2022-01-24] MEDS: Levothyroxine Sodium 50 MCG TABLET PO (05:38)
[2022-01-24 06:26] LABS: Cholesterol 268 mg/dL; HDL Cholesterol 40 mg/dL; LDL Cholesterol Calculated 184 mg/dl; Triglycerides 222 mg/dL
[2022-01-24 06:28] LABS: INTERNATIONAL NORM RATIO 4.4 (0.9-1.1)
[2022-01-24 07:17] LABS: Glucose, Whole Blood 114 mg/dL (60-115)
[2022-01-24 07:33] VITALS: BP 142/67; PULSE 71; RESP 16; TEMP 36.4; O2SAT 99
[2022-01-24] MEDS: metFORMIN HCl 500 MG TABLET PO ×2 (08:39→16:52)
[2022-01-24] MEDS: Cholecalciferol (Vitamin D3) 25 MCG TABLET 50 MCG PO (08:40)
[2022-01-24] MEDS: Atorvastatin Calcium 80 MG TABLET PO (08:40)
[2022-01-24] MEDS: Multivitamin TABLET 1 TAB PO (08:40)
[2022-01-24] MEDS: 0.9 % Sodium Chloride Flush 3 ML SYRINGE IVFLUSH ×3 (08:40→21:03)
--- NOTE | 2022-01-24 09:00 | PC.NURSE ---
monitor technician dc'd by Dr Mayfield
[2022-01-24 09:33] VITALS: BP 142/67; PULSE 71; O2SAT 99
[2022-01-24 11:07] LABS: Glucose, Whole Blood 105 mg/dL (60-115)
[2022-01-24 11:53] VITALS: BP 137/76; PULSE 78; RESP 17; TEMP 36.5; O2SAT 99
--- NOTE | 2022-01-24 12:15 | MHC.STROKE ---
Addendum entered by Gloria Archibald RN 01/25/22 12:05: I MET WITH THE PATIENT TO FOLLOW UP. SHE IS GOING TO ACUTE REHAB TODAY. WE DISCUSSED HER COMPLIANCE WITH COUMADIN AGAIN AND POSSIBLY SWITCHING TO THE NEW ANTICOAGULATION MEDICATIONS, SHE SAID COST IS STILL AN ISSUE. I DID GET AN INFORMATIONAL ANTICOAGULATION PACKET AND REVIEW THIS WITH HER, I ALSO GAVE HER A LIST OF FOODS THAT INCREASE AND DECREASE HER INR READINGS. WE AGAIN DISCUSSED STROKE PREVENTION AND WHAT SHE NEEDS TO DO IN THE FUTURE. I ANSWERED ALL OF HER QUESTIONS. Addendum entered by Gloria Archibald RN 01/24/22 13:14: JF THE ANTICOAGULATION NURSE FROM [facility] CALLED ME BACK. WE DISCUSSED THE INR'S AND NICKIE'S COMPLIANCE. SHE MENTIONED THAT THE LEVELS ARE INCONSISTENT, ALSO THAT SHE STOPPED THE COUMADIN FOR 3-DAYS FOR A DERMATOLOGY PROCEDURE RECENTLY. SHE ALSO SAID THAT OCCASIONALLY SHE FORGETS A DOSE. THE [employer] MECHANIC MELISSA IS ASSISTING WITH THE ALTERNATIVE OPTIONS AND SEEING IF SHE IS ELIGIBLE FOR A REDUCED RATE ON THE NEW NOAC MEDICATIONS. I ALSO REVIEWED THIS WITH DR. JETT THE HOSPITALIST. Original Note: ON 01/22/22 EMS PRE-NOTIFIED [facility] AT 0806 (NO STROKE ALERT). SHE ARRIVED AT 0812. SHE CONFIRMED TO ME TODAY THAT SHE HAD SOME RIGHT ARM NUMBNESS ON MONDAY ALL DAY (SHE RECEIVED A COVID VACCINE IN THAT RIGHT ARM ON MONDAY AND THAT IT WAS FROM THAT). SHE WENT TO BED ON 01/21/22 AT 2200, SHE WOKE AROUND 0530 AND ALSO NOTICED SHE HAD DIFFICULTY MOVING HER RIGHT LEG AND KNEE. SHE DID TALK TO HER DAUGHTER THEN CALLED 911. SHE HAD A CT, NO BLEED. POC INR WAS 2.9, LAB DRAW 3.1. SHE WAS EXCLUDED FROM [facility] BASED ON THIS INR AND > 4.5 HRS FROM SYMPTOM ONSET. HER INITIAL NIHSS = 3. RIGHT LEG DRIFT AND ATAXIA. TODAY SHE HAD AN MRI AND IT WAS + LEFT THALAMIC ISCHEMIC STROKE. I DID SPEAK WITH THE NURSE AND HER RIGHT HAND IS ALSO WEAK AND CLUMSY. WE DISCUSSED HER DIAGNOSIS AND I PROVIDED STROKE EDUCATION USING THE BOOKLET, POWER POINT SLIDES AND REVIEWING THE MRI SCREENSHOT THAT REVEALED THE STROKE. I EXPLAINED HOW A STROKE IN THAT LOCATION CAUSES THE SYMPTOMS SHE IS EXPERIENCING. SHE MENTIONED THAT SHE GOES TO [facility] [phone] AND WE REVIEWED HER INR LOG BOOK. THROUGHOUT THE PAST 4 MONTHS HER INR'S WERE PRIMARILY SUB-THERAPEUTIC 1.0, 1.2, 1.3, 1.6 ALTHOUGH THERE WERE A FEW READINGS OF 2.0 AND 3.0 RANDOMLY IN THAT TIMEFRAME. WE DISCUSSED SWITCHING TO ONE OF THE NEW ANTICOAGULANTS AND SHE REFUSES BECAUSE IT WILL COST ME $50/MONTH AND i'M NOT PAYING THAT . I DID EXPLAIN THAT SHE HAS NOT BEEN IN THERAPEUTIC RANGE AND SHE SHOULD CONSIDER THIS. I WILL REFER TO CASE MANAGEMENT AND PERHAPS THEY CAN ASSIST HER. I DID CALL [facility] AND LEFT A MESSAGE FOR THEM TO CALL ME TO REVIEW THE INR'S AND HER COMPLIANCE. I ALSO CANCELLED HER APPOINTMENT FOR TODAY AT 2:20. SHE WILL REQUIRE REHAB POST-STROKE. I WILL CONTINUE TO FOLLOW.
--- NOTE | 2022-01-24 15:12 | MHC.CM.PN ---
PT ACCEPTED AT [facility], [facility] UNABLE TO TAKE PT UNTIL TOMORROW, KENZIE[ITALIST, NURSE AND PT AWARE, CM WILL COMPLETE HCP W/PT.
[2022-01-24 15:18] VITALS: BP 140/72; PULSE 84; RESP 14; TEMP 36.4; O2SAT 98
--- NOTE | 2022-01-24 15:56 | MHC.CM.PN ---
Cm met w/pt to complete hcp, pt named dtr Araseli corbett [phone] h [phone] as her health care agent, no alternate chosen, pt provided w/educational information, original and 2 copies, copy uploaded to [email or web address] and placed in chart w/pt permission.
--- NOTE | 2022-01-24 16:05 | P.DS_ITS ---
DS: Providers Provider Date of Service: 01/24/22 Date of admission: 01/22/22 12:54 Primary care physician: Eli Morrison MD Consults: 01/22/22 13:57 Consult to Neurology Routine Consulting Provider: [facility] Reason for consultation: parasthesias Has provider been notified: Yes DS: Diagnosis Discharge Diagnosis (1) Right sided weakness: Status: Acute (2) Diabetes: Status: Acute (3) High cholesterol: Status: Acute (4) HTN (hypertension): Status: Acute DS: Summary Hospital Course Hospital Course: from admission H+P by hospitalist Roderick Mayfield DO, 01/22/22: 82-year-old female with history of diabetes hypertension high cholesterol and old CVA presents today with weakness to her right leg.? She states she received veloz booster approximately 3 days ago and developed numbness and tingling in her right arm the next day.? She states no initial leg symptoms.? States when she woke up this morning she was unable to keep her knee straight and felt getting out of bed.? Presented to the emergency room where CT revealed an old occipital infarct. The patient was admitted to the hospitalist service on telemetry. Neurology was consulted. MRI demonstrated a small acute lacunar CVA in the left thalamus. High-intensity statin was started. PT and OT were consulted, and she was transferred to acute rehabilitation. Her INR levels over the past few months were reviewed and they were primarily subtherapeutic. The importance of full adherence with warfarin was counseled. Unfortunately, a DOAC is cost- prohibitive for her. Her INR was 4.9 on the day of discharge. so warfarin should be held and INRs checked daily until 3 or less, then warfarin should be resumed with dose adjustment to target INR of 2-3. She is a patient of the [facility]. Time Spent with Patient Time attestation: Total time spent providing and/or coordinating discharge services: Discharge coordination time: Greater than 30 minutes Quality: Safe Use of Opioids Does Pt have an Active Cancer Diagnosis on the Problem List?: No Quality: Stroke Does the patient have a stroke diagnosis?: No Physical Exam Vital Signs: Vital Signs: Last Vital Signs Temp 97.6 F 01/24/22 15:18 Pulse 84 01/24/22 15:18 Resp 14 01/24/22 15:18 BP 140/72 H 01/24/22 15:18 Pulse Ox 98 01/24/22 15:18 BMI result Body Mass Index 27.8 DS: Data Data Completed and Pending Labs on day of discharge: Laboratory Results - last 24 hr 01/23/22 01/23/22 01/24/22 16:20 20:09 05:26 PT 52.0 H INR 4.4 H POC Glucose 169 H 97 Triglycerides Cholesterol LDL Cholesterol, Calc HDL Cholesterol 01/24/22 01/24/22 01/24/22 05:26 07:06 11:03 PT INR POC Glucose 114 105 Triglycerides 222 Cholesterol 268 LDL Cholesterol, Calc 184 HDL Cholesterol 40 Discharge Plan Discharge Patient Disposition: Xfer Inpatient Rehab Fac Discharge Diagnosis: CVA Referrals: [facility] [Outside] - 1 Week Eli Morrison MD [Primary Care Provider] - 1 Week Discharge Medications: New atorvastatin 80 mg Tablet 80 mg PO DAILY Qty: 30 0RF Continued multivitamin Tablet 1 tab PO DAILY 0RF metformin 500 mg tablet 1 tab PO BID 0RF levothyroxine 50 mcg tablet 1 tab PO DAILY 0RF losartan 25 mg tablet 1 tab PO DAILY 0RF hydroxyzine HCl 10 mg tablet 1 - 2 tab PO DAILY PRN (Reason: Itching) 0RF cholecalciferol (vitamin D3) 50 mcg (2,000 unit) Tablet 50 mcg PO DAILY 0RF Held warfarin 2.5 mg tablet 2.5 mg PO SUWE 0RF Hold Instructions: Resume on 01/28/22. hold until INR is 3 or less; adjust dose to target INR 2-3 warfarin 5 mg tablet 5 mg PO MOTUTHFRSA 0RF Hold Instructions: Resume on 01/28/22. hold until INR is 3 or less; adjust dose to target INR 2-3 Discharge Orders: Discharge Order (Routine); Ordered 01/25/22 Ordered By: Prakash Portillo Diet: advance to usual diet Activity on Discharge: As tolerated Stand Alone Forms: Patient Portal Discharge page Other Ambulatory Orders: Prothrombin Time INR (DAILY) Timeframe: 2 Days Facility: [facility] - Location: Laboratory Ordered By: Prakash Portillo Prothrombin Time INR (DAILY) Timeframe: 3 Days Facility: [facility] - Location: Laboratory Ordered By: Prakash Portillo Prothrombin Time INR (DAILY) Timeframe: 4 Days Facility: [facility] - Location: Laboratory Ordered By: Prakash Portillo Prothrombin Time INR (DAILY) Timeframe: 5 Days Facility: [facility] - Location: Laboratory Ordered By: Prakash Portillo Care Plan Goals: recovery from CVA prevention of future CVA Health Concerns: CVA Plan of Treatment: PT/OT check INR daily; hold warfarin until INR 3 or less [it is 3.9 today, 01/26/22], then resume to target INR 2-3 Assessment: See discharge summary Patient Instructions: Ischemic Stroke (DC), Stroke (DC) Discharge Date/Time: 01/26/22 13:30
--- NOTE | 2022-01-24 16:08 | P.PNIM_ITS ---
Subjective Subjective Date of Service: 01/24/22 Interval History: No acute issues overnight. Symptoms essentially unchanged from presentation Review of Systems Denies chest pain Denies shortness of breath Denies nausea vomiting diarrhea Denies fever chills Physical Exam Vital Signs: Vital Signs: Last Vital Signs Temp 97.6 F 01/24/22 15:18 Pulse 84 01/24/22 15:18 Resp 14 01/24/22 15:18 BP 140/72 H 01/24/22 15:18 Pulse Ox 98 01/24/22 15:18 BMI result Body Mass Index 27.8 Const: Other: Awake alert oriented x3 no acute distress Neck: Other: No JVD Resp: Other: Clear to auscultation bilaterally. No rales rhonchi or wheezes Cardio: Other: No S4; positive S1-S2; no S3 murmurs rubs or gallops GI: Other: Soft nontender nondistended with normoactive bowel sounds Neuro: Other: Cranial nerves 2-12 grossly intact as tested. Motor is 5/5 left lower extremity 3/5 right lower extremity. Motor is 4/5 right upper extremity 5/5 left upper extremity. Right pronator drift. Toes downgoing. Cognition appropriate Extrem: Other: No edema bilaterally Objective Data Active Medications Atorvastatin Calcium (Atorvastatin Calcium 80 Mg Tablet) 80 mg PO DAILY [facility] Last Admin: 01/24/22 08:40 Dose: 80 mg Documented by: NEGIN Insulin Human Lispro (Insulin Lispro 100 Unit/Ml 3 Ml Vial) 0 unit SUBCUT QIDACHS [facility]; Protocol Last Admin: 01/24/22 12:36 Dose: Not Given Documented by: NEGIN Non-Admin Reason: No Insulin Coverage Levothyroxine Sodium (Levothyroxine Sodium 50 Mcg Tablet) 50 mcg PO DAILY@0600 [facility] Last Admin: 01/24/22 05:38 Dose: 50 mcg Documented by: RAÚL Metformin HCl (Metformin Hcl 500 Mg Tablet) 500 mg PO BIDWM [facility] Last Admin: 01/24/22 08:39 Dose: 500 mg Documented by: NEGIN Multivitamins/Vitamin C (Multivitamin Tablet) 1 tab PO DAILY [facility] Last Admin: 01/24/22 08:40 Dose: 1 tab Documented by: NEGIN Sodium Chloride (0.9 % Sodium Chloride Flush 3 Ml Syringe) 3 ml IVFLUSH QSHIFT [facility] Last Admin: 01/24/22 08:40 Dose: 3 ml Documented by: NEGIN Vitamin D (Cholecalciferol (Vitamin D3) 25 Mcg Tablet) 50 mcg PO DAILY [facility] Last Admin: 01/24/22 08:40 Dose: 50 mcg Documented by: NEGIN Warfarin Sodium (Warfarin Sodium 2.5 Mg Tablet) 2.5 mg PO SuWe@1800 [facility] Last Admin: 01/23/22 16:45 Dose: 2.5 mg Documented by: YOLI Warfarin Sodium (Warfarin Sodium 5 Mg Tablet) 5 mg PO MoTuThFrSa@1800 [facility] Labs CBC & Chem 7: 01/23/22 05:52 01/23/22 05:52 Labs: Laboratory Results - last 24 hr 01/23/22 01/23/22 01/24/22 16:20 20:09 05:26 PT 52.0 H INR 4.4 H POC Glucose 169 H 97 Triglycerides Cholesterol LDL Cholesterol, Calc HDL Cholesterol 01/24/22 01/24/22 01/24/22 05:26 07:06 11:03 PT INR POC Glucose 114 105 Triglycerides 222 Cholesterol 268 LDL Cholesterol, Calc 184 HDL Cholesterol 40 Assessment and Plan (1) Lacunar infarct, acute: Status: Acute (2) High cholesterol: Status: Acute (3) HTN (hypertension): Status: Acute (4) Diabetes: Status: Acute Plan 82-year-old female with a history of CVA in the past in the backdrop of diabetes hypertension hyperlipidemia presents with right-sided weakness that she awoke with. States that she got a COVID booster approximately 72 hours ago and developed some paresthesias in her upper arm. She stated no leg pain or paresthesia at that time. In the emergency room CT scan was positive for an old infarct nothing acute. 1.Small acute lacunar infarct left thalamus -add high-dose statin -PT/OT eval done. .. Recommend short-term rehab 2. Diabetes type 2 -continue metformin at outpatient dosing... Adjust as clinically indicated -lispro correctional scale -ADA diet 3. Hypertension -increase losartan -adjust as clinically indicated 4. Hyperlipidemia -add atorvastatin 80 mg daily Full code Coumadin Quality Stroke Does the patient have a stroke diagnosis?: No VTE Prior VTE?: No VTE Risk Level:: Medical - moderate - high VTE Device Contraindication: Treatment Not Indicated VTE Drug Contraindication: N/A - Med Ordered
[2022-01-24 16:09] LABS: Glucose, Whole Blood 154 mg/dL (60-115)
[2022-01-24] MEDS: Insulin Lispro 100 UNIT/ML 3 ML VIAL SUBCUT (16:52)
[2022-01-24 18:57] VITALS: BP 119/56; PULSE 79; RESP 14; TEMP 36.6; O2SAT 96
[2022-01-24 20:59] LABS: Glucose, Whole Blood 115 mg/dL (60-115)
[2022-01-25] VITALS (8 sets, daily range): BP systolic 126–155; BP diastolic 62–68; PULSE 65–82; RESP 17–18; TEMP 36–36.7; O2SAT 96–99
[2022-01-25] MEDS: Levothyroxine Sodium 50 MCG TABLET PO (05:43)
[2022-01-25 07:22] LABS: INTERNATIONAL NORM RATIO 4.9 (0.9-1.1); Prothrombin Time 58.2 SEC (9.9-13.0)
[2022-01-25 07:46] LABS: Glucose, Whole Blood 124 mg/dL (60-115)
[2022-01-25] MEDS: Multivitamin TABLET 1 TAB PO (08:33)
[2022-01-25] MEDS: 0.9 % Sodium Chloride Flush 3 ML SYRINGE IVFLUSH (08:33)
[2022-01-25] MEDS: metFORMIN HCl 500 MG TABLET PO ×2 (08:33→17:07)
[2022-01-25] MEDS: Atorvastatin Calcium 80 MG TABLET PO (08:33)
[2022-01-25] MEDS: Cholecalciferol (Vitamin D3) 25 MCG TABLET 50 MCG PO (08:33)
[2022-01-25 11:01] LABS: Glucose, Whole Blood 122 mg/dL (60-115)
--- NOTE | 2022-01-25 11:25 | MHC.CM.PN ---
Per ROUNDS discussion, Patient will be medically cleared for dc today to Acute Rehab. Patient will dc to [facility] today at 4PM, via [facility]. Last IMM addressed on 01/23/22. CM attempted to reach Daughter/Araseli at [phone], but was only able to leave a detailed message, informing her of the dc plan.
--- NOTE | 2022-01-25 11:41 | PM.DS ---
DS: Providers Provider Date of Service: 01/25/22 Date of admission: 01/22/22 12:54 Date of discharge: 01/25/22 Primary care physician: Eli Morrison MD Consults: 01/22/22 13:57 Consult to Neurology Routine Consulting Provider: [facility] Reason for consultation: parasthesias Has provider been notified: Yes DS: Diagnosis Discharge Diagnosis (1) Lacunar infarct, acute: Status: Acute (2) High cholesterol: Status: Acute (3) HTN (hypertension): Status: Acute (4) Diabetes: Status: Acute DS: Summary Hospital Course Hospital Course: from admission H+P by hospitalist Roderick Mayfield DO, 01/22/22: 82-year-old female with history of diabetes hypertension high cholesterol and old CVA presents today with weakness to her right leg.? She states she received veloz booster approximately 3 days ago and developed numbness and tingling in her right arm the next day.? She states no initial leg symptoms.? States when she woke up this morning she was unable to keep her knee straight and felt getting out of bed.? Presented to the emergency room where CT revealed an old occipital infarct. The patient was admitted to the hospitalist service on telemetry. Neurology was consulted. MRI demonstrated a small acute lacunar CVA in the left thalamus. High-intensity statin was started. PT and OT were consulted, and she was transferred to acute rehabilitation. Her INR levels over the past few months were reviewed and they were primarily subtherapeutic. The importance of full adherence with warfarin was counseled. Unfortunately, a DOAC is cost-prohibitive for her. Her INR was 4.9 on the day of discharge. so warfarin should be held and INRs checked daily until 3 or less, then warfarin should be resumed with dose adjustment to target INR of 2-3. She is a patient of the [facility]. Time Spent with Patient Time attestation: Total time spent providing and/or coordinating discharge services: 40 Discharge coordination time: Greater than 30 minutes Quality: Safe Use of Opioids Does Pt have an Active Cancer Diagnosis on the Problem List?: No Quality: Stroke Does the patient have a stroke diagnosis?: Yes Reason for No Anti-thrombotic at DC: Not indicated Reason for No Anticoagulant at DC: N/A - Med Ordered Reason Not Initiating IV-Tpa: Drug treatment not indicated Reason for No Anti-thrombotic by Day Two: N/A - Med Ordered Reason for No Statin at DC: N/A - Med Ordered Physical Exam Vital Signs: Vital Signs: Last Vital Signs Temp 97.7 F 01/25/22 11:26 Pulse 78 01/25/22 11:26 Resp 18 01/25/22 11:26 BP 126/63 01/25/22 11:26 Pulse Ox 98 01/25/22 11:26 BMI result Body Mass Index 27.8 Gen: in no acute distress HEENT: sclera anicteric, moist mucus membranes Neck: supple Lungs: clear to auscultation bilaterally Heart: regular rate and rhythm, no murmurs Abd: soft, non-tender, non-distended Ext: no edema Skin: warm/well-perfused Neuro: alert and oriented x3, 4/5 RLE and RUE strength Psych: appropriate affect DS: Data Data Completed and Pending Completed studies during hospitalization [Text1]: Laboratory Results WBC 6.9 X10*3/uL (4.8-10.8) 01/23/22 05:52 RBC 3.95 X10*6/uL (4.20-5.50) L 01/23/22 05:52 Hgb 11.3 g/dl (12.0-16.0) L 01/23/22 05:52 Hct 33.8 % (37.0-47.0) L 01/23/22 05:52 MCV 85.6 fL (80.0-98.0) 01/23/22 05:52 MCH 28.6 pg (27.0-33.0) 01/23/22 05:52 MCHC 33.4 g/dl (31.0-35.0) 01/23/22 05:52 RDW 12.3 % (11.0-16.0) 01/23/22 05:52 Plt Count 266 X10*3/uL (160-400) 01/23/22 05:52 MPV 10.5 fL (9.4-12.3) 01/23/22 05:52 Immature Gran % (Auto) 0.3 % (0.0-0.4) 01/22/22 09:00 Neut % (Auto) 62.0 % (45-73) 01/22/22 09:00 Lymph % (Auto) 25.6 % (20-40) 01/22/22 09:00 [place] % (Auto) 8.3 % (2-11) 01/22/22 09:00 Eos % (Auto) 3.1 % (0-4) 01/22/22 09:00 Baso % (Auto) 0.7 % (0-2) 01/22/22 09:00 Lymph # (Auto) 1.9 X10*3/uL (1.2-4.9) 01/22/22 09:00 [place] # (Auto) 0.6 X10*3/uL (0.1-1.2) 01/22/22 09:00 Eos # (Auto) 0.2 X10*3/uL (0.0-0.4) 01/22/22 09:00 Baso # (Auto) 0.1 X10*3/uL (0.0-0.2) 01/22/22 09:00 Abs Immat Gran (auto) 0.02 X10*3/uL (0.00-0.03) 01/22/22 09:00 Absolute Neuts (auto) 4.6 x10*3/uL (2.0-8.3) 01/22/22 09:00 Absolute Nucleated RBC 0.000 X10*3/uL (0.0-0.012) 01/23/22 05:52 Nucleated RBC % (auto) 0.0 /100WBC (0.0-0.2) 01/23/22 05:52 PT 58.2 SEC (9.9-13.0) H 01/25/22 06:06 Whole Blood PT 34.9 sec (11.1-13.5) H 01/22/22 09:00 INR 4.9 (0.9-1.1) H 01/25/22 06:06 Whole Blood INR 2.9 (0.9-1.1) H 01/22/22 09:00 APTT 47.9 SEC (24.1-38.0) H 01/22/22 09:00 Sodium 138 mmol/L (135-145) 01/23/22 05:52 Potassium 4.6 mmol/L (3.3-5.1) 01/23/22 05:52 Chloride 104 mmol/L (96-108) 01/23/22 05:52 Carbon Dioxide 24 mmol/L (22-29) 01/23/22 05:52 Anion Gap 15 (12-20) 01/23/22 05:52 BUN 17 mg/dL (9-16) H 01/23/22 05:52 Creatinine 1.09 mg/dL (0.5-1.4) 01/23/22 05:52 Estim Creat Clear Calc 49.5 01/23/22 05:52 Estimated GFR 48 01/23/22 05:52 POC Glucose 122 mg/dL (60-115) H 01/25/22 10:57 Random Glucose 118 mg/dL (60-115) H 01/22/22 09:00 Random Glucose 119 mg/dL (60-115) H 01/22/22 09:00 Fasting Glucose 125 mg/dL (60-99) H 01/23/22 05:52 Calcium 9.3 mg/dL (8.4-10.2) 01/23/22 05:52 Phosphorus 3.4 mg/dL (2.7-4.5) 01/22/22 09:00 Magnesium 1.8 mg/dL (1.6-2.6) 01/22/22 09:00 Total Bilirubin 0.6 mg/dL (0.0-1.0) 01/23/22 05:52 Direct Bilirubin 0.2 mg/dL (0.0-0.5) 01/22/22 09:00 AST 14 U/L (5-31) 01/23/22 05:52 ALT 9 U/L (0-31) 01/23/22 05:52 Alkaline Phosphatase 52 U/L (39-117) 01/23/22 05:52 Total Creatine Kinase 56 U/L (26-140) 01/22/22 09:00 Troponin I High Sens < 3.5 ng/L (<3.5-17.0) 01/22/22 09:00 Total Protein 6.4 g/dL (6.5-8.0) L 01/23/22 05:52 Albumin 3.7 g/dL (3.5-5.0) 01/23/22 05:52 Triglycerides 222 mg/dL 01/24/22 05:26 Cholesterol 268 mg/dL 01/24/22 05:26 LDL Cholesterol, Calc 184 mg/dl 01/24/22 05:26 HDL Cholesterol 40 mg/dL 01/24/22 05:26 COVID-19 (EDYTA) Negative (Negative) 01/22/22 11:20 COVID-19 Clin Com See Note 01/22/22 11:20 Impressions Chest X-Ray 01/22/22 09:02 IMPRESSION: No evidence of pneumonia. No acute cardiopulmonary findings. Head CT 01/22/22 09:12 IMPRESSION: Hypodensity in the left occipital lobe compatible with an infarction, of indeterminate age. Consider further evaluation with CTA head or MRI, as clinically warranted. No evidence of acute intracranial hemorrhage. This critical result was discussed with Dr. Andersen at 919 hours on 01/22/2022. It was ascertained that the content and urgency of the report was understood at the time of direct communication. Cervical Spine CT 01/22/22 09:23 IMPRESSION: 1. Slight undulation/depression of the superior aspect of C7 vertebral body. This could represent physiological variation versus an age-indeterminate subtle fracture. Clinically correlate for focal symptoms. Further evaluation with MRI as clinically warranted. 2. No other acute osseous abnormalities identified in the cervical spine. 3. Cervical spondylosis. Brain MRI 01/24/22 10:38 IMPRESSION: Small acute lacunar infarction in the left thalamus. Background changes of advanced chronic microangiopathy and chronic left [employer] infarct. No mass or enhancing lesion. No hemorrhage. Discharge Plan Discharge Patient Disposition: Xfer Inpatient Rehab Fac Discharge Diagnosis: CVA Referrals: [facility] [Outside] - 1 Week Eli Morrison MD [Primary Care Provider] - 1 Week Discharge Medications: New atorvastatin 80 mg Tablet 80 mg PO DAILY Qty: 30 0RF Continued multivitamin Tablet 1 tab PO DAILY 0RF metformin 500 mg tablet 1 tab PO BID 0RF levothyroxine 50 mcg tablet 1 tab PO DAILY 0RF losartan 25 mg tablet 1 tab PO DAILY 0RF hydroxyzine HCl 10 mg tablet 1 - 2 tab PO DAILY PRN (Reason: Itching) 0RF cholecalciferol (vitamin D3) 50 mcg (2,000 unit) Tablet 50 mcg PO DAILY 0RF Held warfarin 2.5 mg tablet 2.5 mg PO SUWE 0RF Hold Instructions: Resume on 01/28/22. hold until INR is 3 or less; adjust dose to target INR 2-3 warfarin 5 mg tablet 5 mg PO MOTUTHFRSA 0RF Hold Instructions: Resume on 01/28/22. hold until INR is 3 or less; adjust dose to target INR 2-3 Discharge Orders: Discharge Order (Routine); Ordered 01/25/22 Ordered By: Prakash Portillo Diet: advance to usual diet Activity on Discharge: As tolerated Stand Alone Forms: Patient Portal Discharge page Care Plan Goals: recovery from CVA prevention of future CVA Health Concerns: CVA Plan of Treatment: PT/OT hold warfarin until INR 3 or less [it is 4.9 today, 01/25/22], then resume to target INR 2-3 Assessment: See discharge summary Patient Instructions: Ischemic Stroke (DC)
[2022-01-25 12:05] LABS: COVID-19 Test Negative (Negative)
--- NOTE | 2022-01-25 15:18 | MHC.CM.PN ---
Today's dc had to be canceled because the anticipated dc from [place] that would create an opening for Patient is now not being dc until tomorrow.MD, RN,Patient and Daughter/Dina are aware of the change in plans.
--- NOTE | 2022-01-25 15:21 | P.PNIM_ITS ---
Subjective Subjective Date of Service: 01/25/22 Interval History: RUE/RLE weakness gradually improving, no other complaints was set to be discharged to [facility] but bed fell through Review of Systems Review of Systems: Yes all other systems are reviewed and are negative Physical Exam Vital Signs: Vital Signs: Last Vital Signs Temp 97.7 F 01/25/22 11:26 Pulse 78 01/25/22 11:26 Resp 18 01/25/22 11:26 BP 126/63 01/25/22 11:26 Pulse Ox 98 01/25/22 11:26 BMI result Body Mass Index 27.8 Gen: in no acute distress HEENT: sclera anicteric, moist mucus membranes Neck: supple Lungs: clear to auscultation bilaterally Heart: regular rate and rhythm, no murmurs Abd: soft, non-tender, non-distended Ext: no edema Skin: warm/well-perfused Neuro: alert and oriented x3, 4/5 RLE and RUE strength Psych: appropriate affect ? Objective Data Active Medications Atorvastatin Calcium (Atorvastatin Calcium 80 Mg Tablet) 80 mg PO DAILY [facility] Last Admin: 01/25/22 08:33 Dose: 80 mg Documented by: NEGIN Insulin Human Lispro (Insulin Lispro 100 Unit/Ml 3 Ml Vial) 0 unit SUBCUT QIDACHS [facility]; Protocol Last Admin: 01/25/22 11:04 Dose: Not Given Documented by: NEGIN Non-Admin Reason: No Insulin Coverage Levothyroxine Sodium (Levothyroxine Sodium 50 Mcg Tablet) 50 mcg PO DAILY@0600 [facility] Last Admin: 01/25/22 05:43 Dose: 50 mcg Documented by: RAÚL Metformin HCl (Metformin Hcl 500 Mg Tablet) 500 mg PO BIDWM [facility] Last Admin: 01/25/22 08:33 Dose: 500 mg Documented by: NEGIN Multivitamins/Vitamin C (Multivitamin Tablet) 1 tab PO DAILY [facility] Last Admin: 01/25/22 08:33 Dose: 1 tab Documented by: NEGIN Sodium Chloride (0.9 % Sodium Chloride Flush 3 Ml Syringe) 3 ml IVFLUSH QSHIFT [facility] Last Admin: 01/25/22 08:33 Dose: 3 ml Documented by: NEGIN Vitamin D (Cholecalciferol (Vitamin D3) 25 Mcg Tablet) 50 mcg PO DAILY [facility] Last Admin: 01/25/22 08:33 Dose: 50 mcg Documented by: NEGIN Warfarin Sodium (Warfarin Sodium 2.5 Mg Tablet) 2.5 mg PO SuWe@1800 [facility] Last Admin: 01/23/22 16:45 Dose: 2.5 mg Documented by: YOLI Warfarin Sodium (Warfarin Sodium 5 Mg Tablet) 5 mg PO MoTuThFrSa@1800 [facility] Labs CBC & Chem 7: 01/23/22 05:52 01/23/22 05:52 Labs: Laboratory Results - last 24 hr 01/24/22 01/24/22 01/25/22 16:04 20:49 06:06 PT 58.2 H INR 4.9 H POC Glucose 154 H 115 COVID-19 (EDYTA) COVID-19 Clin Com 01/25/22 01/25/22 01/25/22 07:28 10:57 11:34 PT INR POC Glucose 124 H 122 H COVID-19 (EDYTA) Negative COVID-19 Clin Com See Note Assessment and Plan (1) Lacunar infarct, acute: Status: Acute (2) High cholesterol: Status: Acute (3) HTN (hypertension): Status: Acute (4) Diabetes: Status: Acute Plan hospital d#4 82-year-old female with a history of CVA in the past in the backdrop of diabetes, hypertension, and hyperlipidemia presents with right-sided weakness that she awoke with. States that she got a COVID booster approximately 72 hours ago and developed some paresthesias in her upper arm. She stated no leg pain or paresthesia at that time. In the emergency room CT scan was positive for an old infarct. MRI showed acute lacunar infarct in L thalamus # small acute lacunar infarct left thalamus - added high-dose statin - warfarin anticoagulation, adherence emphasized [most INR measurements in prior 4 mo were sub-therapeutic]. currently supra-therapeutic- hold and check INR daily until 3 or less - PT/OT: rehab # diabetes type 2 - continued metformin at outpatient dosing - DM diet # Hypertension - continue losartain # Hyperlipidemia - added atorvastatin 80 mg daily # hypothyroidism - LT4 # VTE ppx - warfarin Quality Stroke Does the patient have a stroke diagnosis?: Yes Reason for No Anti-thrombotic by Day Two: N/A - Med Ordered VTE Prior VTE?: No VTE Risk Level:: Medical - moderate - high VTE Device Contraindication: Treatment Not Indicated VTE Drug Contraindication: N/A - Med Ordered
[2022-01-25 15:54] LABS: Glucose, Whole Blood 112 mg/dL (60-115)
[2022-01-25 20:13] LABS: Glucose, Whole Blood 108 mg/dL (60-115)
[2022-01-26 03:13] VITALS: BP 158/70; PULSE 74; RESP 17; TEMP 36.6; O2SAT 99
[2022-01-26] MEDS: Levothyroxine Sodium 50 MCG TABLET PO (06:12)
[2022-01-26 07:15] LABS: Glucose, Whole Blood 123 mg/dL (60-115)
[2022-01-26 07:19] VITALS: BP 152/68; PULSE 72; RESP 18; TEMP 36.4; O2SAT 95
[2022-01-26] MEDS: Atorvastatin Calcium 80 MG TABLET PO (08:44)
[2022-01-26] MEDS: Cholecalciferol (Vitamin D3) 25 MCG TABLET 50 MCG PO (08:44)
[2022-01-26] MEDS: metFORMIN HCl 500 MG TABLET PO (08:44)
[2022-01-26] MEDS: Multivitamin TABLET 1 TAB PO (08:44)
--- NOTE | 2022-01-26 09:41 | MHC.CM.PN ---
PT DISCHARGING TO [facility], [facility] REQUESTING 1PM DEISCHARGE, HOSPITALIST AND NURSE MADE AWARE VIA TIGER.
[2022-01-26 09:58] VITALS: BP 152/68; PULSE 72; O2SAT 95
[2022-01-26 10:02] LABS: INTERNATIONAL NORM RATIO 3.9 (0.9-1.1); Prothrombin Time 45.9 SEC (9.9-13.0)
[2022-01-26 11:02] LABS: Glucose, Whole Blood 125 mg/dL (60-115)
[2022-01-26 11:24] VITALS: BP 129/62; PULSE 80; RESP 18; TEMP 36.6; O2SAT 98
== END 2022-01-26 13:30 | DRG 66 ==
LOC: HO.ED 11:05 → HO.EDOVER 13:17 → HO.S3 13:58
PROVIDERS: Admitting Provider Hospitalist; Emergency Provider Emergency Medicine Emergency Medical Services; PCP Family Medicine; Visit Provider Family Medicine
DX: I63.81 Other cerebral infarction due to occlusion or stenosis of small artery (principal); E11.9 Type 2 diabetes mellitus without complications; I10 Essential (primary) hypertension; E78.00 Pure hypercholesterolemia, unspecified; R29.703 NIHSS score 3; Z20.822 Contact with and (suspected) exposure to COVID-19; R20.2 Paresthesia of skin; R79.1 Abnormal coagulation profile; E03.9 Hypothyroidism, unspecified; Z86.73 Personal history of transient ischemic attack (TIA), and cerebral infarction without residual deficits; Z87.891 Personal history of nicotine dependence; Z88.6 Allergy status to analgesic agent; Z79.84 Long term (current) use of oral hypoglycemic drugs; Z79.01 Long term (current) use of anticoagulants; Z79.890 Hormone replacement therapy; Z79.899 Other long term (current) drug therapy
CPT/HCPCS: 36415; 70450; 70553; 71045; 72125; 80048; 80053; 80061; 80076; 82550; 82947; 83735; 84100; 84484; 85025; 85027; 85610; 85730; 87635; 93005; 96374; 96375; 97116; 97162; 97166; 97530; 99285; A9585; J1200; J2765

== ENCOUNTER 2022-06-13 14:10 | Emergency (ER) | payer MEDICARE, SELFPAY ==
--- NOTE | ~2022-06-13 | CT_ITS ---
EXAMINATION: CT HEAD WITHOUT CONTRAST CT FACE WITHOUT CONTRAST CT CERVICAL SPINE WITHOUT CONTRAST CLINICAL INFORMATION: Fall. COMPARISON: CT scan of the head and cervical spine 01/22/2022 TECHNIQUE: Academic Support Director images were obtained. CT imaging of the head, face, and cervical spine was performed without contrast. Data was reformatted into multiplanar images at the acquisition workstation. This CT examination was performed using dose optimization techniques as appropriate, including one or more of the following: Automated exposure control, iterative reconstruction, and adjustment of technique factors (mA and/or kVp) according to patient size (this includes techniques or standardized protocols for targeted exams where dose is matched to indication/reason for exam). DLP: 1460 mGy-cm. FINDINGS: Head: There is a chronic cortical infarct within the left occipital lobe and there are numerous foci of hypoattenuation within the periventricular white matter, basal ganglia, and thalami that most likely represent a chronic manifestation of small vessel ischemia. Grossly no evidence of acute territorial infarct. No acute hemorrhage or abnormal extra-axial collection. No intracranial mass effect or hydrocephalus. The calvarium and skull base are intact. Mastoid air cells and middle ear cavities are well aerated. Face: There or chronic changes of an old healed nasal fracture. The zygomatic arches and pterygoid processes are intact. No acute mandibular fracture. The temporomandibular joints are symmetric. There is partial opacification of the right frontal sinus and there is mild mucosal thickening within the alveolar recess of the left maxillary sinus. All of the major paranasal sinus drainage pathways are patent. The nasal septum deviates to the left and there is a prominent leftward projecting nasal septal spur. Cervical spine: Alignment is normal. Vertebral heights are preserved. No acute fracture. No abnormal prevertebral soft tissue swelling. There is multilevel degenerative spondylosis of the cervical spine. A bulging disc in conjunction with buckling of the ligamenta flava at C5-C6 causes severe canal stenosis. There is at least mild canal stenosis at multiple additional levels. Atheromatous calcification involves both carotid bifurcations. Grossly no pathologically enlarged cervical lymph nodes. Lung apices are clear. CT/CT facial bones wo IV con IMPRESSION: No acute intracranial hemorrhage. 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 Grossly no evidence of acute infarct. There is no acute facial or cervical spine fracture. There is a is however multilevel degenerative spondylosis of the cervical spine. A bulging disc in conjunction with buckling of the ligamenta flava at C5-C6 causes severe canal stenosis. If there are clinical symptoms of compressive myelopathy then a dedicated cervical spine MRI is recommended for better anatomic characterization of the cord and canal.
[2022-06-13 14:27] VITALS: BP 175/75; PULSE 85; BMI 22.3
[2022-06-13 14:46] VITALS: BP 193/83; PULSE 86; RESP 16; TEMP 37.1; O2SAT 94
--- NOTE | 2022-06-13 14:52 | ED_ITS ---
HPI - Fall General Chief Complaint: Fall Stated Complaint: FALL,LAC TO UPPER LIP,+COLLAR Time Seen by Provider: 06/13/22 14:45 Source: patient and EMS Mode of arrival: EMS Limitations: no limitations History of Present Illness HPI Narrative: 82-year-old female came in for evaluation after fall and head injury. Patient was walking tripped and fell forward, patient tried to use a fall by using both hands, patient sustained a small laceration in the nose and upper lip, no LOC. Patient is taking Coumadin she was in her way to check her INR but she did not make it today. Patient with known history of CVA left her with right-sided residual weakness. Related Data Home Medications Medication Instructions Recorded Confirmed cholecalciferol (vitamin D3) 50 50 mcg PO DAILY 01/22/22 01/22/22 mcg (2,000 unit) tablet hydroxyzine HCl 10 mg tablet 1 - 2 tab PO DAILY PRN Itching 01/22/22 01/22/22 levothyroxine 50 mcg tablet 1 tab PO DAILY 01/22/22 01/22/22 losartan 25 mg tablet 1 tab PO DAILY 01/22/22 01/22/22 metformin 500 mg tablet 1 tab PO BID 01/22/22 01/22/22 multivitamin 1 tab PO DAILY 01/22/22 01/22/22 warfarin 2.5 mg tablet 2.5 mg PO SUWE 01/22/22 01/22/22 warfarin 5 mg tablet 5 mg PO MOTUTHFRSA 01/22/22 01/22/22 Previous Rx's Medication Instructions Recorded atorvastatin 80 mg tablet 80 mg PO DAILY #30 tabs 01/24/22 Allergies Allergy/AdvReac Type Severity Reaction Status Date / Time aspirin [ASA] Allergy Anaphylaxis Verified 01/22/22 08:27 Review of Systems Review of Systems: All other systems are reviewed and are negative Constitutional: Reports as per HPI and Reports no additional constitutional complaints Eyes: Reports as per HPI and Reports no additional eye complaints Reports system reviewed and no additional complaints, except as documented Cardiovascular: Reports as per HPI and Reports no additional cardiovascular complaints Respiratory: Reports as per HPI and Reports no additional respiratory complaints Gastrointestinal: Reports as per HPI and Reports no additional gastrointestinal complaints Genitourinary: Reports no additional female genitourinary complaints Musculoskeletal: Reports no additional musculoskeletal complaints Skin/Breast: Reports system reviewed and no additional complaints, except as docu Psychiatric: Reports no additional psychiatric complaints Endocrine: Reports no additional endocrine complaints Hematologic/Lymphatic: Reports no additional hematologic/lymphatic complaints Allergic/Immunologic: Reports no additional allergic/immunologic complaints Reports system reviewed and no additional complaints, except as documented and Reports Abnormal speech present FOR[facility]LY [facility] Past Medical History Medical History Diabetes High cholesterol HTN (hypertension) Social History Social History Household Members: None Housing: Apartment Do you presently have visiting nurse or other home services: No Patient Tobacco Use Status: Former Tobacco user Tobacco use type: Cigarette e-Cigarette/Vaping Use: Never Used Use of substances other than those prescribed or required for medical reasons: No Advance Directives: No Advance Directives Information Provided: No service: No Current occupational status: retired Physical Exam Vital Signs: Vital Signs: Last Vital Signs Temp 98.7 F 06/13/22 14:46 Pulse 86 06/13/22 14:46 Resp 16 06/13/22 14:46 BP 193/83 H 06/13/22 14:46 Pulse Ox 94 06/13/22 14:46 O2 Del Method 06/13/22 14:46 BMI result Body Mass Index 22.3 Vital signs have been reviewed as appeared to be correct. Blood pressure elevated. Heart rate normal. Respiration rate normal. Temperature normal. Oxygen saturation normal. Appearance: Alert. Oriented X3. No acute distress. Head: Normal external exam. Normocephalic. Atraumatic. No Alarcon signs noted. No raccoon eyes noted, superficial skin tear on the nose bridge, 0.5 cm laceration on the upper lip. No active bleeding, no through and through laceration. Eyes: PERRLA. EOMI. Conjunctiva and sclera normal. Eyelids normal. ENT: TM's Normal. Pharynx normal. Uvula midline. Moist mucous membranes. No trismus noted. No drooling noted. No muffled voice noted. Neck: Normal inspection. Neck supple. FROM. No adenopathy. Thyroid Normal. No meningeal signs. No neck mass noted. CVS: Normal heart rate and rhythm. Heart sound normal. No murmurs noted. Pulses normal throughout. Respiratory: No respiratory distress. Painless inspiration. Breath sounds normal. No wheezes/rales/rhonchi noted. Chest nontender. No accessory muscle usage noted or decreased air movement noted. Abdomen: Soft and nontender. Bowel sounds normal in all 4 quadrants. No distention noted. No organomegaly noted. No visible injury noted. Back: No CVA tenderness. Full range of motion noted. Skin: Skin warm and dry. Normal skin color. Normal skin turgor. No rashes/lesions/lacerations noted. Extremities: Full range of motion to 4 extremities. Neuro: Oriented X 3. Cranial nerve exam: II-XII are grossly intact No motor deficit. No sensory deficit. Reflexes normal. Course Course Course Narrative: 82-year-old female status post mechanical fall, patient is on Coumadin INR today is 2.7, small laceration to the upper lip only from outside was repaired by Dermabond. Patient is able to ambulate, neuro exam is intact with GCS of 15 will discharge the patient to follow-up with PCP. CT concern of severe spinal canal stenosis patient neurologically intact except for the right old hemiparesis Patient eloped before was given discharge instruction. Procedures Laceration Laceration 1: Site: lip (Right-side of upper) Side (If applicable): right Size (cm): 1 Description: linear Depth: simple, single layer Skin layer closed with: other (Dermabond) MDM - Fall Lab Data Attestation: I reviewed the patient's lab results. Labs: Lab Results 06/13/22 Range/Units 15:54 PT 31.9 H (10.0-13.1) SEC INR 2.7 H (0.9-1.1) Imaging Data Head/face/C-spine CT.: Attestation: I personally reviewed and interpreted this imaging study as follows: Radiologist's impression: No acute intracranial hemorrhage. 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 Grossly no evidence of acute infarct. ? There is no acute facial or cervical spine fracture. There is a is however multilevel degenerative spondylosis of the cervical spine. A bulging disc in conjunction with buckling of the ligamenta flava at C5-C6 causes severe canal stenosis. If there are clinical symptoms of compressive myelopathy then a dedicated cervical spine MRI is recommended for better anatomic characterization of the cord and canal. ? Discharge Plan Discharge Clinical Impression: Accident due to mechanical fall without injury, Laceration of lip, Closed head injury Patient Disposition: Home, Self-Care Instructions: Head Injury (ED) Additional Instructions: Your INR today is 2.7. Prescriptions: No Action multivitamin Tablet 1 tab PO DAILY metformin 500 mg tablet 1 tab PO BID warfarin 2.5 mg tablet 2.5 mg PO SUWE Hold Instructions: Resume on 01/28/22. hold until INR is 3 or less; adjust dose to target INR 2-3 levothyroxine 50 mcg tablet 1 tab PO DAILY warfarin 5 mg tablet 5 mg PO MOTUTHFRSA Hold Instructions: Resume on 01/28/22. hold until INR is 3 or less; adjust dose to target INR 2-3 losartan 25 mg tablet 1 tab PO DAILY hydroxyzine HCl 10 mg tablet 1 - 2 tab PO DAILY PRN (Reason: Itching) cholecalciferol (vitamin D3) 50 mcg (2,000 unit) Tablet 50 mcg PO DAILY atorvastatin 80 mg Tablet 80 mg PO DAILY Qty: 30 0RF Referrals: Eli Morrison MD [Primary Care Provider] -
--- NOTE | 2022-06-13 16:00 | PC.NURSE ---
pt has some abrasions on the face. face is cleaned. provider was notified
[2022-06-13 16:23] LABS: INTERNATIONAL NORM RATIO 2.7 (0.9-1.1); Prothrombin Time 31.9 SEC (10.0-13.1)
--- NOTE | 2022-06-13 18:05 | PC.NURSE ---
pt asked t/w how much longer, I have been here since one and I feel fine, there has been no one in the imaging room why cant I go this story writer informed pt that for safety reasons we need to be sure that there are no bleeds or fractures in order to let her leave, explained risks of her leaving before the official CT result are back. pt reported that she was not going to wait much lunch.
--- NOTE | 2022-06-13 19:20 | PC.NURSE ---
pt not in her bed. checked bathrooms with no sight of pt. IV had previously been removed at pts request
--- NOTE | 2022-06-13 19:21 | PC.NURSE ---
informed dr he that pt likely eloped as she has not been in her bed and is not in the bathrooms. pt no longer wanted to wait for the results of her CT scans though it was explained to her the risks of leaving without CT results.
== END 2022-06-13 19:24 | disposition home or self-care (01) ==
PROVIDERS: Emergency Provider Emergency Medicine; PCP Family Medicine
DX: S09.90XA Unspecified injury of head, initial encounter (principal); S01.511A Laceration without foreign body of lip, initial encounter; S01.21XA Laceration without foreign body of nose, initial encounter; W01.198A Fall on same level from slipping, tripping and stumbling with subsequent striking against other object, initial encounter; E11.9 Type 2 diabetes mellitus without complications; I69.351 Hemiplegia and hemiparesis following cerebral infarction affecting right dominant side; I10 Essential (primary) hypertension; E78.5 Hyperlipidemia, unspecified; Y93.01 Activity, walking, marching and hiking; Y92.9 Unspecified place or not applicable; Y99.9 Unspecified external cause status; Z79.01 Long term (current) use of anticoagulants; Z79.84 Long term (current) use of oral hypoglycemic drugs; Z79.899 Other long term (current) drug therapy; Z79.02 Long term (current) use of antithrombotics/antiplatelets; Z87.891 Personal history of nicotine dependence
CPT/HCPCS: 12011; 36415; 70450; 70486; 72125; 85610; 99284